=== PATIENT | male | born 1965 | race Caucasian/White ===

== ENCOUNTER 2017-08-19 12:04 | Emergency (ER) | payer BC, OTHER ==
[~2017-08-19] VITALS: Ht 177.8 cm; Wt 79.8 kg
[2017-08-19 13:57] VITALS: BP 161/103
== END 2017-08-19 13:57 | disposition home or self-care (01) ==
LOC: ER 12:04
DX: S01.112A Laceration without foreign body of left eyelid and periocular area, initial encounter (principal); Y04.8XXA Assault by other bodily force, initial encounter; Y93.89 Activity, other specified; Y92.89 Other specified places as the place of occurrence of the external cause; Y99.8 Other external cause status